=== PATIENT | female | born 1950 | race Caucasian/White ===

== ENCOUNTER 2016-08-25 19:39 | Inpatient (IN) | payer BC ==
--- NOTE | ~2016-08-25 | OP ---
Record Of Operation [facility] [address] [place]. [address] NAME: SARBJIT PATEL : 50 STATUS : DIS IN PAT#: [id number] AGE: 66 ADM/REG DATE : 08/25/16 MR#: [id number] REPORT SERV DATE: 09/09/16 DICTATED BY: EARL HUNT DATE: 09/09/16 REPORT STATUS : Draft TRANSCRIBED BY: MODPhil DATE: 09/09/16 DATE OF PROCEDURE: 09/03/2016 PREOPERATIVE DIAGNOSIS: Chronic kidney disease. POSTOPERATIVE DIAGNOSIS: Chronic kidney disease. PROCEDURE: Left radiocephalic arteriovenous fistula creation. SURGEON: Earl Hunt M.D. ANESTHESIA: Local with MAC. ESTIMATED BLOOD LOSS: 25 mL. COMPLICATIONS: None. INDICATION: Ms. Patel is a 66-year-old female with need for dialysis access. I have been asked to place a fistula. DETAILS OF THE PROCEDURE: After informed consent was obtained, the patient was brought to the operating room and placed in supine position. After administration of IV sedation, she was prepped and draped in the usual sterile fashion. A time-out was performed. I commenced the procedure with ultrasound examination of the veins of the upper extremity. She has a marginal caliber cephalic vein at the wrist that appears patent throughout the forearm. As a result, we will plan for a radiocephalic fistula. I anesthetized the skin of the wrist and made an incision. We exposed the cephalic vein. It was about 2 mm in diameter. It was mobilized proximally and distally. Through the same incision, I exposed the radial artery, which was about 2.5 mm in caliber. This was controlled with vessel loops. I then ligated the vein and divided it. I performed end-to-side anastomosis of the cephalic vein to the radial artery with running 6-0 Prolene. Prior to completing the suture line, it flushed. We then restored flow to the fistula. There was a weakly palpable thrill at the anastomosis with good Doppler flow distally. Suture line was hemostatic. We ensured hemostasis. I then closed the wound in layers with 3-0 Vicryl for the deep layer and the skin with running 4-0 Monocryl in a subcuticular fashion. Dermabond was applied. The patient tolerated the procedure well with no complications. I was present for this entire case as dictated. PABLO/TREVON Earl Hunt M.D. / [id number] Record Of Operation [address] [address] NAME: SARBJIT PATEL : 50 STATUS : DIS IN PAT#: [id number] AGE: 66 ADM/REG DATE : 08/25/16 MR#: [id number] REPORT SERV DATE: 09/09/16 DICTATED BY: EARL HUNT. DATE: 09/09/16 REPORT STATUS : Draft TRANSCRIBED BY: TREVON DATE: 09/09/16 CC: MD John Swenson M.D.
--- NOTE | ~2016-08-25 | DS ---
Discharge Summary [facility] [address] [place]. [address] NAME: SARBJIT PATEL : 50 STATUS : DIS IN PAT#: [id number] AGE: 66 ADM/REG DATE : 08/25/16 MR#: [id number] REPORT SERV DATE: 09/05/16 DICTATED BY: DOROTEO MOSELEY DATE: 09/04/16 REPORT STATUS : Draft TRANSCRIBED BY: TREVON DATE: 09/04/16 ADMISSION DATE: 08/25/2016 DISCHARGE DATE: 09/04/2016 PROCEDURES DONE: 1. Proximal LAD with focal 40% to 50% narrowing. Mid RCA with diffuse 30% to 40% narrowing. No venogram secondary to chronic kidney disease. Left ventricle end- diastolic pressure 18 mmHg. 45 mL of dye used. Recommendation:. a. Aspirin daily. Statin therapy. Up titration of heart failure meds/blood pressure control. Left bundle branch block, might ultimately benefit from resynchronization therapy. EF 35% to 40% by echo. Monitor creatinine. 2. 08/29/2016, Interventional Radiology. Vas-Cath done. Successful ultrasound and fluoroscopic-guided placement of right internal jugular vein dialysis catheter with the tips in the right atrium. 3. 08/02/2016, chest x-ray: Interval placement of tunneled right jugular dialysis catheter. No pneumothorax. Mild vascular congestion. Bilateral effusions and pulmonary vascular congestions are improved from previous study. Cardiomegaly unchanged. 4. 08/31/2016, upper extremity vein grafting. Visualized portion of basilic and cephalic vein measurements given above for the right and left upper extremity. 5. 08/31/2016, venous extremity, lower. No evidence of thrombus in the left upper extremity venous anatomy. CONSULTS: 1. Cardiology. 2. Renal. REASON FOR ADMISSION: Chest pain. HISTORY OF HOSPITAL STAY: A 66-year-old white female with past medical history of hypertension, diabetes type 2, chronic kidney disease stage IV, presenting with acute diastolic heart failure at [place]. The patient was transferred from [place] to [facility] secondary to the patient having elevated troponins, as well as low ejection fraction of 35% to 40%. Cardiology was consulted and transferred the patient for heart catheterization due to the low ejection fraction. Questionable that both of lower ejection fraction secondary to ischemic disease. The patient underwent left heart catheterization which shows no coronary artery disease blockages. Cardiology recommended aspirin, statin, titration of heart failure/blood pressure medications. Subsequently, during the hospital stay, the patient started developing renal failure. The patient subsequently had to undergo Vas-Cath placement on the right anterior chest wall which eventually the patient had to undergo dialysis. The chest x-ray shows also pulmonary congestion. More than likely, this is secondary to the patient's end-stage renal disease. The patient underwent subsequent hemodialysis which brought the patient's initial complaint of congestive heart failure to resolution. DISPOSITION: The patient is feeling fine, no complaint. Discharge Summary [place] [id number] [place]. [address] NAME: SARBJIT PATEL : 50 STATUS : DIS IN PAT#: [id number] AGE: 66 ADM/REG DATE : 08/25/16 MR#: [id number] REPORT SERV DATE: 09/05/16 DICTATED BY: DORTOEO MOSELEY DATE: 09/04/16 REPORT STATUS : Draft TRANSCRIBED BY: TREVON DATE: 09/04/16 ACTIVITIES: As tolerated. DIET: Renal. PLAN ON DISCHARGE: 1. The patient will follow up with Renal within two weeks' time. 2. Cardiology within two weeks' time. 3. The patient will follow up with primary care within two weeks' time. MEDICATIONS UPON DISCHARGE: 1. Lipitor 40 mg p.o. at bedtime. 2. Coreg 25 mg p.o. b.i.d. 3. Folic acid 1 mg p.o. daily. 4. Insulin sliding scale level 2. Check blood sugar before meals and q.h.s. 5. NovoLog 9 units before each meal. 6. Imdur 60 mg p.o. b.i.d. 7. Multivitamin one tab daily. 8. Procardia 90 mg p.o. daily. 9. Nitroglycerin sublingual 1 inch q.8 hours. 10.Prilosec 20 mg p.o. at bedtime. 11.MiraLAX one packet p.o. daily. 12.Hydralazine 100 mg p.o. q.8 hours. 13.Levemir 30 units subcu b.i.d. 14.Albuterol two puffs inhaled p.r.n. 15.Astoria 10/325 one tab p.o. q.6 hours p.r.n. 16.Tylenol 325 p.o. b.i.d. p.r.n. DIAGNOSES UPON DISCHARGE: 1. Chest pain, secondary to low ejection fraction of 35% to 40%. 2. Chronic kidney disease, stage 5 with end-stage renal disease, on hemodialysis. 3. Acute on chronic congestive heart failure, diastolic dysfunction, EF of 35% to 40%. 4. Hypertension. 5. Diabetes type 2. 6. Hyperlipidemia. CIPRIANO/TREVON Doroteo Moseley MD / [id number] CC: Doroteo Moseley MD Discharge Summary [address] [address] NAME: SARBJIT PATEL : 50 STATUS : DIS IN PAT#: [id number] AGE: 66 ADM/REG DATE : 08/25/16 MR#: [id number] REPORT SERV DATE: 09/05/16 DICTATED BY: DOROTEO MOSELEY DATE: 09/04/16 REPORT STATUS : Draft TRANSCRIBED BY: TREVON DATE: 09/04/16 John Hamilton M.D.
[~2016-08-25 19:39] MED LIST: ADALAT CC90 MG PO; B12250T PO; BUM1 PO; BUM2 PO; COREG25 PO; IMDUR30 PO; KLOR-CON M1010 MEQ PO; KLOR-CON M2020 MEQ PO; L40 PO; LANTUS SC; LIPITOR40 PO; LORTAB10 PO; MINIPRESS 1 MG C1 MG PO; NEUR100 PO; NIFEDIAC CC60 MG PO; NORCO1 TAB PO; NOVOLOG SC; NOVOPEN SC; NXL9 PO; OMNICEF300 PO; PRILO PO; PROAIR HFA INH; T PO; VITAMIN D400 UNI1 PO; ZITHROMAX500 MG PO
[2016-08-26 02:03] LABS: BASOPHILS 0.4 %; BASOPHILS ABSOLUTE 0.02 10/3/uL (0.0-0.16); EOSINOPHILS 4.9 %; EOSINOPHILS ABSOLUTE 0.27 10/3/uL (0.0-0.53); HEMATOCRIT 30.7 % (36.0-48.0); HEMOGLOBIN 9.7 g/dL (12.0-16.0); IMMATURE GRANULOCYTES 0.5 %; IMMATURE GRANULOCYTES ABSOLUTE 0.03 10/3/uL (0.0-0.11); LYMPHOCYTES 12.1 %; LYMPHOCYTES ABSOLUTE 0.66 10/3/uL (0.67-4.30); MANUAL DIFF NO %; MEAN CORPUS HGB CONC 31.6 g/dL (32.0-36.0); MEAN CORPUSCULAR HEMOGLOB 29.2 pg (26.0-34.0); MEAN CORPUSCULAR VOLUME 92.5 fL (80-100); MEAN PLATELET VOLUME 9.5 fL (9.2-13.0); MONOCYTES 7.3 %; NEUTROPHILS 74.8 %; NEUTROPHILS ABSOLUTE 4.08 10/3/uL (2.02-8.40); PLATELET COUNT 177 10/3/uL (150-400); RBC DISTRIBUTION WIDTH 15.5 % (12.0-16.0); RED CELL COUNT 3.32 10/6/uL (4.0-5.6); WHITE BLOOD CELLS 5.5 10/3/uL (4.5-10.5)
[2016-08-26 02:10] LABS: PROTIME (NOT ORD) 13.4 SEC (12.0-14.5)
[2016-08-26 02:16] LABS: ALBUMIN 2.9 G/DL (3.5-5.0); BUN (BLOOD UREA NITROGEN) 58 MG/DL (6-23); CALCIUM, SERUM 8.6 MG/DL (8.5-10.4); CHLORIDE, SERUM 108 MMOL/L (96-112); CO2 (CARBON DIOXIDE) 26 MMOL/L (24-34); CREATININE 3.74 MG/DL (0.55-1.02); GFR AFRICAN AMERICAN 14 ML/MIN (>=60); GFR NON AFRICAN AMERICAN 12 ML/MIN (>=60); GLUCOSE, SERUM 175 MG/DL (60-99); PHOSPHORUS, SERUM 4.8 MG/DL (2.5-4.5); SODIUM, SERUM 145 MMOL/L (135-148)
[2016-08-26 02:20] LABS: CPK 28 U/L (0-200); TROPONIN I 0.03 NG/ML (<0.05)
[2016-08-26 02:21] LABS: CK-MB 0.7 NG/ML
[2016-08-26 06:49] LABS: ALBUMIN 2.8 G/DL (3.5-5.0); BUN (BLOOD UREA NITROGEN) 57 MG/DL (6-23); CALCIUM, SERUM 8.6 MG/DL (8.5-10.4); CHLORIDE, SERUM 109 MMOL/L (96-112); CO2 (CARBON DIOXIDE) 24 MMOL/L (24-34); GFR AFRICAN AMERICAN 14 ML/MIN (>=60); GFR NON AFRICAN AMERICAN 12 ML/MIN (>=60); GLUCOSE, SERUM 221 MG/DL (60-99); POTASSIUM, SERUM 4.3 MMOL/L (3.5-5.3); SODIUM, SERUM 143 MMOL/L (135-148)
[2016-08-26 17:26] LABS: BASOPHILS 0.6 %; BASOPHILS ABSOLUTE 0.03 10/3/uL (0.0-0.16); EOSINOPHILS 4.3 %; HEMATOCRIT 29.9 % (36.0-48.0); HEMOGLOBIN 9.6 g/dL (12.0-16.0); IMMATURE GRANULOCYTES 0.6 %; IMMATURE GRANULOCYTES ABSOLUTE 0.03 10/3/uL (0.0-0.11); LYMPHOCYTES 12.2 %; LYMPHOCYTES ABSOLUTE 0.57 10/3/uL (0.67-4.30); MEAN CORPUS HGB CONC 32.1 g/dL (32.0-36.0); MEAN CORPUSCULAR HEMOGLOB 29.7 pg (26.0-34.0); MEAN CORPUSCULAR VOLUME 92.6 fL (80-100); MEAN PLATELET VOLUME 9.5 fL (9.2-13.0); MONOCYTES 8.8 %; MONOCYTES ABSOLUTE 0.41 10/3/uL (0.21-1.20); NEUTROPHILS 73.5 %; NEUTROPHILS ABSOLUTE 3.44 10/3/uL (2.02-8.40); PLATELET COUNT 154 10/3/uL (150-400); RBC DISTRIBUTION WIDTH 15.5 % (12.0-16.0); RED CELL COUNT 3.23 10/6/uL (4.0-5.6); WHITE BLOOD CELLS 4.7 10/3/uL (4.5-10.5)
[2016-08-26 17:28] LABS: MANUAL DIFF NO %
[2016-08-26 17:43] LABS: CALCIUM, SERUM 8.4 MG/DL (8.5-10.4); CHLORIDE, SERUM 109 MMOL/L (96-112); CHOLESTEROL 181 MG/DL (< 200); CO2 (CARBON DIOXIDE) 23 MMOL/L (24-34); CREATININE 3.55 MG/DL (0.55-1.02); GFR AFRICAN AMERICAN 15 ML/MIN (>=60); GFR NON AFRICAN AMERICAN 13 ML/MIN (>=60); GLUCOSE, SERUM 185 MG/DL (60-99); POTASSIUM, SERUM 4.4 MMOL/L (3.5-5.3); SODIUM, SERUM 142 MMOL/L (135-148)
[2016-08-26 17:44] LABS: BUN (BLOOD UREA NITROGEN) 63 MG/DL (6-23); CHOL/HDL RATIO(NOT ORDER) 4.2 (0-5); HDL CHOLESTEROL 43 MG/DL (> 49); LDL CHOLESTEROL 102 MG/DL (< 130); NON-HDL CHOLESTEROL 138 MG/DL (< 160); TRIGLYCERIDE 181 MG/DL (< 150)
[2016-08-27 07:06] LABS: BASOPHILS ABSOLUTE 0.05 10/3/uL (0.0-0.16); HEMATOCRIT 31.5 % (36.0-48.0); HEMOGLOBIN 9.8 g/dL (12.0-16.0); IMMATURE GRANULOCYTES 1.2 %; IMMATURE GRANULOCYTES ABSOLUTE 0.06 10/3/uL (0.0-0.11); LYMPHOCYTES 9.8 %; LYMPHOCYTES ABSOLUTE 0.49 10/3/uL (0.67-4.30); MEAN CORPUS HGB CONC 31.1 g/dL (32.0-36.0); MEAN CORPUSCULAR HEMOGLOB 29.3 pg (26.0-34.0); MEAN CORPUSCULAR VOLUME 94.3 fL (80-100); MEAN PLATELET VOLUME 9.9 fL (9.2-13.0); MONOCYTES 5.8 %; MONOCYTES ABSOLUTE 0.29 10/3/uL (0.21-1.20); NEUTROPHILS 78.2 %; PLATELET COUNT 167 10/3/uL (150-400); RBC DISTRIBUTION WIDTH 15.7 % (12.0-16.0); RED CELL COUNT 3.34 10/6/uL (4.0-5.6)
[2016-08-27 07:07] LABS: MANUAL DIFF NO %
[2016-08-27 07:18] LABS: ALBUMIN 2.8 G/DL (3.5-5.0); CALCIUM, SERUM 8.5 MG/DL (8.5-10.4); CHLORIDE, SERUM 108 MMOL/L (96-112); CO2 (CARBON DIOXIDE) 21 MMOL/L (24-34); CREATININE 3.71 MG/DL (0.55-1.02); GFR AFRICAN AMERICAN 14 ML/MIN (>=60); GFR NON AFRICAN AMERICAN 12 ML/MIN (>=60); POTASSIUM, SERUM 4.9 MMOL/L (3.5-5.3); SODIUM, SERUM 141 MMOL/L (135-148)
[2016-08-27 07:19] LABS: BUN (BLOOD UREA NITROGEN) 67 MG/DL (6-23); GLUCOSE, SERUM 274 MG/DL (60-99); PHOSPHORUS, SERUM 6.2 MG/DL (2.5-4.5)
[2016-08-28 09:25] LABS: BASOPHILS 0.4 %; BASOPHILS ABSOLUTE 0.02 10/3/uL (0.0-0.16); EOSINOPHILS 4.8 %; EOSINOPHILS ABSOLUTE 0.23 10/3/uL (0.0-0.53); HEMATOCRIT 30.1 % (36.0-48.0); HEMOGLOBIN 9.6 g/dL (12.0-16.0); IMMATURE GRANULOCYTES 0.8 %; IMMATURE GRANULOCYTES ABSOLUTE 0.04 10/3/uL (0.0-0.11); LYMPHOCYTES 12.2 %; LYMPHOCYTES ABSOLUTE 0.58 10/3/uL (0.67-4.30); MEAN CORPUS HGB CONC 31.9 g/dL (32.0-36.0); MEAN CORPUSCULAR HEMOGLOB 28.9 pg (26.0-34.0); MEAN PLATELET VOLUME 9.4 fL (9.2-13.0); MONOCYTES 9.2 %; MONOCYTES ABSOLUTE 0.44 10/3/uL (0.21-1.20); NEUTROPHILS 72.6 %; NEUTROPHILS ABSOLUTE 3.46 10/3/uL (2.02-8.40); PLATELET COUNT 165 10/3/uL (150-400); RBC DISTRIBUTION WIDTH 15.7 % (12.0-16.0); RED CELL COUNT 3.32 10/6/uL (4.0-5.6); WHITE BLOOD CELLS 4.8 10/3/uL (4.5-10.5)
[2016-08-28 09:28] LABS: MANUAL DIFF NO %; MEAN CORPUSCULAR VOLUME 90.7 fL (80-100)
[2016-08-28 09:31] LABS: INTERNATIONAL NORMAL RATI 1.1 UNITS (-)
[2016-08-28 09:42] LABS: ALKALINE PHOSPHATASE 60 U/L (45-117); BUN (BLOOD UREA NITROGEN) 73 MG/DL (6-23); CALCIUM, SERUM 8.8 MG/DL (8.5-10.4); CHLORIDE, SERUM 107 MMOL/L (96-112); CO2 (CARBON DIOXIDE) 23 MMOL/L (24-34); CREATININE 3.95 MG/DL (0.55-1.02); GFR AFRICAN AMERICAN 13 ML/MIN (>=60); GFR NON AFRICAN AMERICAN 11 ML/MIN (>=60); GLUCOSE, SERUM 79 MG/DL (60-99); PHOSPHORUS, SERUM 5.9 MG/DL (2.5-4.5); POTASSIUM, SERUM 4.5 MMOL/L (3.5-5.3); SGOT(AST) 15 U/L (5-40); SGPT(ALT) 20 U/L (5-65); SODIUM, SERUM 138 MMOL/L (135-148); TOTAL BILIRUBIN 0.2 MG/DL (0-1.2)
[2016-08-29 06:10] LABS: BASOPHILS 0.5 %; BASOPHILS ABSOLUTE 0.02 10/3/uL (0.0-0.16); EOSINOPHILS 6.8 %; EOSINOPHILS ABSOLUTE 0.29 10/3/uL (0.0-0.53); HEMATOCRIT 28.3 % (36.0-48.0); HEMOGLOBIN 9.3 g/dL (12.0-16.0); IMMATURE GRANULOCYTES 0.9 %; IMMATURE GRANULOCYTES ABSOLUTE 0.04 10/3/uL (0.0-0.11); LYMPHOCYTES 12.3 %; LYMPHOCYTES ABSOLUTE 0.52 10/3/uL (0.67-4.30); MEAN CORPUS HGB CONC 32.9 g/dL (32.0-36.0); MEAN CORPUSCULAR HEMOGLOB 29.8 pg (26.0-34.0); MEAN CORPUSCULAR VOLUME 90.7 fL (80-100); MONOCYTES 10.8 %; MONOCYTES ABSOLUTE 0.46 10/3/uL (0.21-1.20); NEUTROPHILS 68.7 %; NEUTROPHILS ABSOLUTE 2.91 10/3/uL (2.02-8.40); PLATELET COUNT 153 10/3/uL (150-400); RBC DISTRIBUTION WIDTH 15.3 % (12.0-16.0); RED CELL COUNT 3.12 10/6/uL (4.0-5.6); WHITE BLOOD CELLS 4.2 10/3/uL (4.5-10.5)
[2016-08-29 06:12] LABS: MANUAL DIFF NO %
[2016-08-29 06:34] LABS: A/G RATIO 1.2 (0.7-1.9); ALBUMIN 3.4 G/DL (3.5-5.0); ALKALINE PHOSPHATASE 56 U/L (45-117); BUN (BLOOD UREA NITROGEN) 75 MG/DL (6-23); CHLORIDE, SERUM 104 MMOL/L (96-112); CO2 (CARBON DIOXIDE) 26 MMOL/L (24-34); CREATININE 3.99 MG/DL (0.55-1.02); GFR AFRICAN AMERICAN 13 ML/MIN (>=60); GFR NON AFRICAN AMERICAN 11 ML/MIN (>=60); GLOBULIN 2.9 G/DL (2.5-4.1); GLUCOSE, SERUM 87 MG/DL (60-99); PHOSPHORUS, SERUM 6.1 MG/DL (2.5-4.5); POTASSIUM, SERUM 4.5 MMOL/L (3.5-5.3); SGOT(AST) 16 U/L (5-40); SGPT(ALT) 21 U/L (5-65); SODIUM, SERUM 138 MMOL/L (135-148); TOTAL BILIRUBIN 0.2 MG/DL (0-1.2); TOTAL PROTEIN 6.3 G/DL (6.0-8.5)
[2016-08-30 03:55] LABS: BASOPHILS 0.6 %; BASOPHILS ABSOLUTE 0.03 10/3/uL (0.0-0.16); EOSINOPHILS 6.1 %; HEMATOCRIT 29.1 % (36.0-48.0); HEMOGLOBIN 9.3 g/dL (12.0-16.0); IMMATURE GRANULOCYTES 0.6 %; IMMATURE GRANULOCYTES ABSOLUTE 0.03 10/3/uL (0.0-0.11); LYMPHOCYTES 16.2 %; MEAN CORPUSCULAR HEMOGLOB 29.2 pg (26.0-34.0); MEAN CORPUSCULAR VOLUME 91.5 fL (80-100); MEAN PLATELET VOLUME 10.2 fL (9.2-13.0); MONOCYTES 9.5 %; MONOCYTES ABSOLUTE 0.47 10/3/uL (0.21-1.20); NEUTROPHILS ABSOLUTE 3.31 10/3/uL (2.02-8.40); PLATELET COUNT 154 10/3/uL (150-400); RBC DISTRIBUTION WIDTH 14.9 % (12.0-16.0); RED CELL COUNT 3.18 10/6/uL (4.0-5.6); WHITE BLOOD CELLS 4.9 10/3/uL (4.5-10.5)
[2016-08-30 03:56] LABS: MANUAL DIFF NO %
[2016-08-30 04:17] LABS: A/G RATIO 1.2 (0.7-1.9); ALBUMIN 3.1 G/DL (3.5-5.0); ALKALINE PHOSPHATASE 60 U/L (45-117); CALCIUM, SERUM 8.3 MG/DL (8.5-10.4); CHLORIDE, SERUM 105 MMOL/L (96-112); CO2 (CARBON DIOXIDE) 27 MMOL/L (24-34); GLOBULIN 2.6 G/DL (2.5-4.1); POTASSIUM, SERUM 4.3 MMOL/L (3.5-5.3); SGOT(AST) 21 U/L (5-40); SGPT(ALT) 26 U/L (5-65); SODIUM, SERUM 142 MMOL/L (135-148); TOTAL PROTEIN 5.7 G/DL (6.0-8.5)
[2016-08-30 04:26] LABS: BUN (BLOOD UREA NITROGEN) 54 MG/DL (6-23); CREATININE 3.09 MG/DL (0.55-1.02); GFR AFRICAN AMERICAN 17 ML/MIN (>=60); GFR NON AFRICAN AMERICAN 15 ML/MIN (>=60); GLUCOSE, SERUM 155 MG/DL (60-99); PHOSPHORUS, SERUM 4.7 MG/DL (2.5-4.5); TOTAL BILIRUBIN 0.8 MG/DL (0-1.2)
[2016-08-30 09:56] LABS: HEPATITIS B SURFACE ANTIGEN NON-REACTIVE (NON-REACT)
[2016-08-30 10:23] LABS: HEPATITIS C ANTIBODY NON-REACTIVE (NON-REACT)
[2016-08-30 10:24] LABS: HEPATITIS B CORE AB IGM NON-REACTIVE (NON-REAC); HIV COMBO NON-REACTIVE (NON REAC)
[2016-08-30 10:25] LABS: HEP A ANTIBODY IGM NON-REACTIVE (NON-REACT)
[2016-08-31 08:24] LABS: BASOPHILS 0.7 %; BASOPHILS ABSOLUTE 0.04 10/3/uL (0.0-0.16); EOSINOPHILS 5.5 %; EOSINOPHILS ABSOLUTE 0.33 10/3/uL (0.0-0.53); HEMATOCRIT 31.8 % (36.0-48.0); HEMOGLOBIN 10.3 g/dL (12.0-16.0); IMMATURE GRANULOCYTES 0.5 %; IMMATURE GRANULOCYTES ABSOLUTE 0.03 10/3/uL (0.0-0.11); LYMPHOCYTES 15.2 %; LYMPHOCYTES ABSOLUTE 0.91 10/3/uL (0.67-4.30); MEAN CORPUS HGB CONC 32.4 g/dL (32.0-36.0); MEAN CORPUSCULAR HEMOGLOB 29.6 pg (26.0-34.0); MEAN CORPUSCULAR VOLUME 91.4 fL (80-100); MEAN PLATELET VOLUME 10.1 fL (9.2-13.0); MONOCYTES ABSOLUTE 0.54 10/3/uL (0.21-1.20); NEUTROPHILS 69.1 %; NEUTROPHILS ABSOLUTE 4.15 10/3/uL (2.02-8.40); PLATELET COUNT 185 10/3/uL (150-400); RBC DISTRIBUTION WIDTH 14.7 % (12.0-16.0); RED CELL COUNT 3.48 10/6/uL (4.0-5.6)
[2016-08-31 08:33] LABS: MANUAL DIFF NO %
[2016-08-31 08:37] LABS: BUN (BLOOD UREA NITROGEN) 36 MG/DL (6-23); CALCIUM, SERUM 8.3 MG/DL (8.5-10.4); CHLORIDE, SERUM 108 MMOL/L (96-112); CO2 (CARBON DIOXIDE) 28 MMOL/L (24-34); CREATININE 2.59 MG/DL (0.55-1.02); GFR AFRICAN AMERICAN 22 ML/MIN (>=60); GFR NON AFRICAN AMERICAN 19 ML/MIN (>=60); GLUCOSE, SERUM 67 MG/DL (60-99); PHOSPHORUS, SERUM 3.8 MG/DL (2.5-4.5); POTASSIUM, SERUM 4.2 MMOL/L (3.5-5.3); SODIUM, SERUM 145 MMOL/L (135-148)
[2016-09-01 06:19] LABS: BASOPHILS 0.4 %; BASOPHILS ABSOLUTE 0.03 10/3/uL (0.0-0.16); EOSINOPHILS 3.8 %; EOSINOPHILS ABSOLUTE 0.27 10/3/uL (0.0-0.53); HEMATOCRIT 31.8 % (36.0-48.0); HEMOGLOBIN 10.3 g/dL (12.0-16.0); IMMATURE GRANULOCYTES 0.6 %; IMMATURE GRANULOCYTES ABSOLUTE 0.04 10/3/uL (0.0-0.11); LYMPHOCYTES 14.3 %; LYMPHOCYTES ABSOLUTE 1.02 10/3/uL (0.67-4.30); MEAN CORPUS HGB CONC 32.4 g/dL (32.0-36.0); MEAN CORPUSCULAR HEMOGLOB 29.4 pg (26.0-34.0); MEAN CORPUSCULAR VOLUME 90.9 fL (80-100); MEAN PLATELET VOLUME 9.7 fL (9.2-13.0); MONOCYTES 10.7 %; MONOCYTES ABSOLUTE 0.76 10/3/uL (0.21-1.20); NEUTROPHILS 70.2 %; PLATELET COUNT 202 10/3/uL (150-400); RBC DISTRIBUTION WIDTH 14.7 % (12.0-16.0); WHITE BLOOD CELLS 7.1 10/3/uL (4.5-10.5)
[2016-09-01 06:20] LABS: MANUAL DIFF NO %
[2016-09-01 06:38] LABS: ALKALINE PHOSPHATASE 59 U/L (45-117); CALCIUM, SERUM 8.9 MG/DL (8.5-10.4); CHLORIDE, SERUM 106 MMOL/L (96-112); CO2 (CARBON DIOXIDE) 27 MMOL/L (24-34); CREATININE 2.42 MG/DL (0.55-1.02); GFR AFRICAN AMERICAN 23 ML/MIN (>=60); GFR NON AFRICAN AMERICAN 20 ML/MIN (>=60); GLOBULIN 2.9 G/DL (2.5-4.1); PHOSPHORUS, SERUM 3.3 MG/DL (2.5-4.5); POTASSIUM, SERUM 4.2 MMOL/L (3.5-5.3); SGOT(AST) 19 U/L (5-40); SGPT(ALT) 19 U/L (5-65); SODIUM, SERUM 143 MMOL/L (135-148); TOTAL BILIRUBIN 0.6 MG/DL (0-1.2); TOTAL PROTEIN 5.9 G/DL (6.0-8.5)
[2016-09-01 06:39] LABS: BUN (BLOOD UREA NITROGEN) 25 MG/DL (6-23); GLUCOSE, SERUM 37 MG/DL (60-99)
[2016-09-02 05:20] LABS: BASOPHILS 0.6 %; BASOPHILS ABSOLUTE 0.04 10/3/uL (0.0-0.16); EOSINOPHILS 6.5 %; HEMATOCRIT 30.4 % (36.0-48.0); IMMATURE GRANULOCYTES 0.5 %; IMMATURE GRANULOCYTES ABSOLUTE 0.03 10/3/uL (0.0-0.11); LYMPHOCYTES 16.5 %; LYMPHOCYTES ABSOLUTE 1.02 10/3/uL (0.67-4.30); MEAN CORPUS HGB CONC 32.9 g/dL (32.0-36.0); MEAN CORPUSCULAR HEMOGLOB 29.5 pg (26.0-34.0); MEAN CORPUSCULAR VOLUME 89.7 fL (80-100); MONOCYTES 8.3 %; MONOCYTES ABSOLUTE 0.51 10/3/uL (0.21-1.20); NEUTROPHILS 67.6 %; NEUTROPHILS ABSOLUTE 4.17 10/3/uL (2.02-8.40); PLATELET COUNT 197 10/3/uL (150-400); RBC DISTRIBUTION WIDTH 14.9 % (12.0-16.0); RED CELL COUNT 3.39 10/6/uL (4.0-5.6); WHITE BLOOD CELLS 6.2 10/3/uL (4.5-10.5)
[2016-09-02 05:32] LABS: ALKALINE PHOSPHATASE 58 U/L (45-117); CALCIUM, SERUM 8.9 MG/DL (8.5-10.4); CHLORIDE, SERUM 103 MMOL/L (96-112); CO2 (CARBON DIOXIDE) 27 MMOL/L (24-34); GLOBULIN 2.9 G/DL (2.5-4.1); POTASSIUM, SERUM 4.4 MMOL/L (3.5-5.3); SGOT(AST) 22 U/L (5-40); SGPT(ALT) 26 U/L (5-65); SODIUM, SERUM 140 MMOL/L (135-148); TOTAL BILIRUBIN 0.5 MG/DL (0-1.2); TOTAL PROTEIN 5.9 G/DL (6.0-8.5)
[2016-09-02 05:34] LABS: BUN (BLOOD UREA NITROGEN) 40 MG/DL (6-23); CREATININE 3.03 MG/DL (0.55-1.02); GFR AFRICAN AMERICAN 18 ML/MIN (>=60); GFR NON AFRICAN AMERICAN 15 ML/MIN (>=60); GLUCOSE, SERUM 74 MG/DL (60-99)
[2016-09-02 05:48] LABS: MANUAL DIFF NO %
[2016-09-03 05:27] LABS: BASOPHILS 0.5 %; BASOPHILS ABSOLUTE 0.03 10/3/uL (0.0-0.16); EOSINOPHILS 6.3 %; EOSINOPHILS ABSOLUTE 0.38 10/3/uL (0.0-0.53); HEMATOCRIT 29.6 % (36.0-48.0); HEMOGLOBIN 9.9 g/dL (12.0-16.0); IMMATURE GRANULOCYTES 0.3 %; IMMATURE GRANULOCYTES ABSOLUTE 0.02 10/3/uL (0.0-0.11); LYMPHOCYTES 17.3 %; LYMPHOCYTES ABSOLUTE 1.04 10/3/uL (0.67-4.30); MEAN CORPUS HGB CONC 33.4 g/dL (32.0-36.0); MEAN CORPUSCULAR HEMOGLOB 29.6 pg (26.0-34.0); MEAN CORPUSCULAR VOLUME 88.4 fL (80-100); MEAN PLATELET VOLUME 10.1 fL (9.2-13.0); MONOCYTES 11.7 %; NEUTROPHILS 63.9 %; NEUTROPHILS ABSOLUTE 3.83 10/3/uL (2.02-8.40); PLATELET COUNT 197 10/3/uL (150-400); RBC DISTRIBUTION WIDTH 14.6 % (12.0-16.0); RED CELL COUNT 3.35 10/6/uL (4.0-5.6)
[2016-09-03 05:30] LABS: MANUAL DIFF NO %
[2016-09-03 05:45] LABS: A/G RATIO 1.1 (0.7-1.9); ALKALINE PHOSPHATASE 59 U/L (45-117); CALCIUM, SERUM 9.2 MG/DL (8.5-10.4); CHLORIDE, SERUM 103 MMOL/L (96-112); CO2 (CARBON DIOXIDE) 28 MMOL/L (24-34); CREATININE 3.28 MG/DL (0.55-1.02); GFR AFRICAN AMERICAN 16 ML/MIN (>=60); GFR NON AFRICAN AMERICAN 14 ML/MIN (>=60); GLOBULIN 2.7 G/DL (2.5-4.1); POTASSIUM, SERUM 4.3 MMOL/L (3.5-5.3); SGOT(AST) 19 U/L (5-40); SGPT(ALT) 26 U/L (5-65); SODIUM, SERUM 138 MMOL/L (135-148); TOTAL BILIRUBIN 0.3 MG/DL (0-1.2); TOTAL PROTEIN 5.7 G/DL (6.0-8.5)
[2016-09-03 05:47] LABS: BUN (BLOOD UREA NITROGEN) 52 MG/DL (6-23); GLUCOSE, SERUM 103 MG/DL (60-99)
[2016-09-04] MEDS ORDERED: NOVOPEN SC (11:22)
[2016-09-04] MEDS ORDERED: FOLIC PO (11:23)
[2016-09-04] MEDS ORDERED: LANTUSCART SC (11:23)
[2016-09-04] MEDS ORDERED: MVI PO (11:23)
[2016-09-04] MEDS ORDERED: LIPITOR40 PO (11:24)
[2016-09-04] MEDS ORDERED: NXL9 PO (11:24)
[2016-09-04] MEDS ORDERED: HYDRALAZINE100 MG PO ×2 (11:25→11:26)
[2016-09-04] MEDS ORDERED: NITROBID2 % TOP (11:26)
[2016-09-04] MEDS ORDERED: MULTIVITAMI1 PO (11:27)
[2016-10-25] MEDS ORDERED: PRIN20 PO (09:21)
[2016-10-25] MEDS ORDERED: RENA-VITE PO (09:22)
== END 2016-09-04 12:42 | disposition home or self-care (01) | DRG 264 ==
LOC: 2SO 19:39
PROVIDERS: Hospitalist; Internal Medicine; Internal Medicine Interventional Cardiology; Internal Medicine Nephrology; Registered Nurse
PROC: 031B09F Bypass Right Radial Artery to Lower Arm Vein with Autologous Venous Tissue, Open Approach (ICD-10-PCS; principal; 2016-08-26)
PROC: B2151ZZ Fluoroscopy of Left Heart using Low Osmolar Contrast (ICD-10-PCS; 2016-08-26)
PROC: B2111ZZ Fluoroscopy of Multiple Coronary Arteries using Low Osmolar Contrast (ICD-10-PCS; 2016-08-26)
PROC: 05HM33Z Insertion of Infusion Device into Right Internal Jugular Vein, Percutaneous Approach (ICD-10-PCS; 2016-08-29)
PROC: B543ZZA Ultrasonography of Right Jugular Veins, Guidance (ICD-10-PCS; 2016-08-29)
PROC: 5A1D60Z (ICD-10-PCS; 2016-08-29)
PROC: B5131ZA Fluoroscopy of Right Jugular Veins using Low Osmolar Contrast, Guidance (ICD-10-PCS; 2016-08-29)
PROC: 5A1D60Z (ICD-10-PCS; 2016-08-29)
DX: I13.2 Hypertensive heart and chronic kidney disease with heart failure and with stage 5 chronic kidney disease, or end stage renal disease (principal); J96.01 Acute respiratory failure with hypoxia; N17.9 Acute kidney failure, unspecified; I50.43 Acute on chronic combined systolic (congestive) and diastolic (congestive) heart failure; N18.6 End stage renal disease; I25.110 Atherosclerotic heart disease of native coronary artery with unstable angina pectoris; I12.0 Hypertensive chronic kidney disease with stage 5 chronic kidney disease or end stage renal disease; E11.65 Type 2 diabetes mellitus with hyperglycemia; E11.22 Type 2 diabetes mellitus with diabetic chronic kidney disease; D63.1 Anemia in chronic kidney disease; J44.9 Chronic obstructive pulmonary disease, unspecified; I44.7 Left bundle-branch block, unspecified; I25.5 Ischemic cardiomyopathy; F17.210 Nicotine dependence, cigarettes, uncomplicated; E11.649 Type 2 diabetes mellitus with hypoglycemia without coma; E78.5 Hyperlipidemia, unspecified; M19.90 Unspecified osteoarthritis, unspecified site; M51.36 Other intervertebral disc degeneration, lumbar region; K21.9 Gastro-esophageal reflux disease without esophagitis; F41.9 Anxiety disorder, unspecified; I34.0 Nonrheumatic mitral (valve) insufficiency; E66.9 Obesity, unspecified; K59.00 Constipation, unspecified; M54.5 Low back pain; G89.29 Other chronic pain; Z68.38 Body mass index [BMI] 38.0-38.9, adult; Z82.49 Family history of ischemic heart disease and other diseases of the circulatory system; Z99.2 Dependence on renal dialysis; Z79.4 Long term (current) use of insulin; Z99.81 Dependence on supplemental oxygen
CPT/HCPCS: 36558; 36600; 36821; 71010; 71020; 76937; 77001; 80048; 80053; 80061; 80069; 80074; 80076; 81001; 82550; 82553; 82570; 82575; 82805; 82947; 82962; 83036; 83735; 83880; 83935; 84100; 84145; 84155; 84156; 84165; 84300; 84443; 84484; 85025; 85610; 85730; 87040; 87086; 87389; 93005; 93458; 93970; 93975; 94640; 96374; 97165-GO; 99152; 99291; A9270-GY; C1750; C1769; C1894; G0257; G0365; J0360; J0690; J1205; J1610; J2250; J2405; J2795; J3010; P9047; Q9967

== ENCOUNTER 2016-10-29 07:10 | Day surgery (SDC) | payer BC ==
--- NOTE | ~2016-10-29 | OP ---
Record Of Operation [facility] [address] [place]. [address] NAME: SARBJIT PATEL : 50 STATUS : [facility] UNIT#: [id number] AGE: 66 ADM/REG DATE : 10/29/16 MR#: [id number] REPORT SERV DATE: 10/29/16 DICTATED BY: EARL HUNT DATE: 10/29/16 REPORT STATUS : Draft TRANSCRIBED BY: MODPhil DATE: 10/29/16 DATE OF PROCEDURE: 10/29/2016 PREOPERATIVE DIAGNOSES: 1. End-stage renal disease. 2. Catheter dependence. 3. Previous failed left radiocephalic arteriovenous fistula. POSTOPERATIVE DIAGNOSES: 1. End-stage renal disease. 2. Catheter dependence. 3. Previous failed left radiocephalic arteriovenous fistula. PROCEDURE: Left upper extremity basilic vein transposition arteriovenous fistula. SURGEON: Earl Hunt M.D. PRESS HAND: Everardo. ANESTHESIA: MAC with regional block. ESTIMATED BLOOD LOSS: 75 mL. IV FLUIDS: 200 mL. COMPLICATIONS: None. INDICATION: Ms Patel is a pleasant, 66-year-old female with end-stage renal disease, on hemodialysis via PermCath. She has a previous failed left radiocephalic AV fistula. She is recommended for new fistula creation in the left arm. DETAILS OF PROCEDURE: After informed consent was obtained, the patient was brought to the operating room and placed in supine position. After administration of IV sedation and regional block, she was prepped and draped in usual sterile fashion. A time-out was performed. I commenced the procedure with ultrasound examination of the veins of the upper arm. The cephalic vein in the mid forearm has a decent caliber. However, just cephalad to the arteriovenous anastomosis, it is either occluded or highly stenotic and was not able to be intervened upon previously. The cephalic vein in the upper arm is diminutive. She has a patent and decent caliber basilic vein. As a result, basilic vein transposition was planned. I made an incision just above the antecubital fossa and dissected down through subcutaneous tissue. The basilic vein was identified. It was approximately 3.5 mm in diameter at this level. I followed it up the arm mobilizing it. I made a separate incision in the more proximal arm, continued to expose and mobilize the basilic vein. After an adequate length was mobilized, I exposed the brachial artery through the more distal incision. She also has a high takeoff of the radial artery very close to this level. The brachial artery is about 2.5 mm in diameter. After that, I divided the vein after ligated Record Of Operation [place] [address] [place]. [address] NAME: SARBJIT PATEL : 50 STATUS : [facility] UNIT#: [id number] AGE: 66 ADM/REG DATE : 10/29/16 MR#: [id number] REPORT SERV DATE: 10/29/16 DICTATED BY: EARL HUNT. DATE: 10/29/16 REPORT STATUS : Draft TRANSCRIBED BY: MODL DATE: 10/29/16 it distally. I then tunneled it laterally and subcutaneously. Care was made to ensure that the vein did not twist. We systemically heparinized at that point. I then performed end-to side anastomosis of the basilic vein to the brachial artery with running 6-0 Prolene. Prior to completing suture line, flushed. There was flow to the fistula first and then to the arm distally. The vein dilated nicely. There was immediately palpable thrill within the fistula. Suture line was hemostatic. There was good flow in the hand with palpable radial pulse. Preserved obviously with a high take off of the radial artery. After that, we ensured hemostasis. Incisions were closed in layers of 2-0 and 3-0 Vicryl for the deep layer with running 4-0 Monocryl in the subcuticular fashion for the skin. Dermabond was applied. The patient tolerated the procedure well with no complications. I was present and participated for this entire case as dictated. PABLO/TREVON Earl Hunt M.D. / [id number] CC: Kaylene Pickering M.D.
[~2016-10-29 07:10] MED LIST changes: +FOLIC PO; +HYDRALAZINE100 MG PO; +LANTUSCART SC; +MULTIVITAMI1 PO; +MVI PO; +NITROBID2 % TOP; +PRIN20 PO; +RENA-VITE PO
[2016-10-29 07:52] LABS: HEMOGLOBIN 11.3 g/dL (12.0-16.0)
[2016-10-29 07:54] LABS: HEMATOCRIT 33.4 % (36.0-48.0)
[2016-10-29 08:00] LABS: CALCIUM, SERUM 9.1 MG/DL (8.5-10.4); CHLORIDE, SERUM 107 MMOL/L (96-112); POTASSIUM, SERUM 4.2 MMOL/L (3.5-5.3); SODIUM, SERUM 144 MMOL/L (135-148)
[2016-10-29 08:01] LABS: BUN (BLOOD UREA NITROGEN) 19 MG/DL (6-23); CO2 (CARBON DIOXIDE) 35 MMOL/L (24-34); GFR AFRICAN AMERICAN 28 ML/MIN (>=60); GFR NON AFRICAN AMERICAN 24 ML/MIN (>=60); GLUCOSE, SERUM 161 MG/DL (60-99)
== END 2016-10-29 14:28 | disposition home or self-care (01) ==
LOC: SDC 07:10
PROVIDERS: Surgery
PROC: 05SC0ZZ Reposition Left Basilic Vein, Open Approach (ICD-10-PCS; principal; 2016-10-29 10:00)
DX: T82.510A Breakdown (mechanical) of surgically created arteriovenous fistula, initial encounter (principal); T82.858A Stenosis of other vascular prosthetic devices, implants and grafts, initial encounter; E11.22 Type 2 diabetes mellitus with diabetic chronic kidney disease; I13.2 Hypertensive heart and chronic kidney disease with heart failure and with stage 5 chronic kidney disease, or end stage renal disease; I50.9 Heart failure, unspecified; N18.6 End stage renal disease; E78.00 Pure hypercholesterolemia, unspecified; K21.9 Gastro-esophageal reflux disease without esophagitis; I25.2 Old myocardial infarction; J44.9 Chronic obstructive pulmonary disease, unspecified; M06.9 Rheumatoid arthritis, unspecified; Z90.710 Acquired absence of both cervix and uterus; I44.7 Left bundle-branch block, unspecified; Z88.0 Allergy status to penicillin; Z99.2 Dependence on renal dialysis; Z79.4 Long term (current) use of insulin; Z79.899 Other long term (current) drug therapy
CPT/HCPCS: 80048; 82962; 85014; 85018; 93005; J0690; J2250; J2795; J3010